=== PATIENT | female | born 1975 | race Caucasian/White ===

== ENCOUNTER 2016-08-31 07:07 | Inpatient (IN) | payer BC ==
[2016-08-31] VITALS (9 sets, daily range): BP systolic 88–119; BP diastolic 42–79
[~2016-08-31] VITALS: Ht 162.6 cm; Wt 68.0 kg
[~2016-08-31 07:07] MED LIST: FERROUS SULFAT325 M2 PO; LISINOPRIL/HCTZ1 TA3 PO; LORTAB 5/500 501 TAB PO
[2016-08-31 07:18] LABS: URINE BLOOD 1+ (NEG)
[2016-08-31] MEDS ORDERED: AVPAK AZITHROM250 MG PO (07:18)
[2016-08-31] MEDS ORDERED: HYDROCHLOROTH12.5 M1 PO (07:19)
[2016-08-31] MEDS ORDERED: PREDNISONE 20MG20 MG PO (07:19)
[2016-08-31 07:24] LABS: URINE BILIRUBIN - DIPSTICK 1+ (NEG)
[2016-08-31 07:31] LABS: URINE SQUAMOUS CELLS 20-50 #/hpf (0-5)
[2016-08-31 07:42] LABS: LYMPH # 0.7 K/mm3 (0.7-4.5); LYMPH % 9.2 % (10-50.0)
[2016-08-31 07:46] LABS: HEMOGLOBIN 13.2 g/dL (12.2-16.2)
--- NOTE | 2016-08-31 08:03 | Emergency Room Report ---
History of Present Illness Time Seen by MD Stearns Presenting Problem in Triage Pt arrived:Walked Presenting Problem:FEVER SINCE FRIDAY-STATES HAS PROGRESSIVELY GOTTEN WORSE BEGAN VOMITING LAST NIGHT AND STATES "I CAN'T STOp". Onset of symptoms date/time:/ or onset unknown for:MEDICAL HX UNKNOWN Treatment Prior to Arrival: TYLENOL AND IBU SEO CONSULTANT Provided by:SELF Sepsis Risk Assessment: Temp: 102.0 B/P: 119/79 MAP: 92 Pulse: 117 Resp: 18 Recent fever? Y Clinical Suspician of Infection? N Mental Status: 1 - Regular (Normal Baseline) Sepsis Risk:Low Sepsis Risk Have you (or family members/close friends) recently traveled outside the [place]? N If Yes, where/when: Have you had exposure to infectious disease within the past month? TB? Other? Specify: Source patient, RN notes reviewed, family, old records Exam Limitations no limitations Comment pt with progressive sob and cough with fever who has finished z galilea - pt with vomiting and dec po intake Cardiac Chest Pain Chest pain indicative of cardiac No Timing/Duration this morning Severity moderate ALLERGIES Coded Allergies: No Known Drug Allergies (08/31/16) Home Medications Active Scripts Acetaminophen W/ Hydrocodone (Lortab 5/500) 1 TAB PO Q4HP #30 TAB Prov: 03/17/13 Reported Medications Azithromycin (Avpak Azithromycin) 250 MG PO DAILY #6 Prednisone (Prednisone 20MG) 20 MG PO BID #12 Hydrochlorothiazide (Hydrochlorothiazide 12.5MG) 12.5 MG PO DAILY Ferrous Sulfate (Ferrous Sulfate 325MG) 325 MG PO DAILY #30 TAB History Medical History General Angina: No [place]: No Hypertension? Yes Hyperlipidemia? No CHF? No COPD? No Asthma? No Hernia? No CVA? No Seizures? No Diabetes? No UTI? Yes Stones? No GB Disease: Yes Hepatitis? No Cataracts? No Glaucoma? No TB? No Cancer? 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 Respiratory cough, denies shortness of breath, denies wheezing Cardiovascular denies chest pain, denies syncope Gastrointestinal denies abdominal pain, denies diarrhea, denies vomiting Genitourinary denies: dysuria, frequency, hesitancy, hematuria. Musculoskeletal denies back pain, denies joint pain, denies joint swelling, denies neck pain Skin denies rash Psychiatric/Neurological denies headache, denies seizure Physical Exam Vital Signs Vital Signs Date Time Temp Pulse Resp B/P Pulse O2 O2 Flow FiO2 Ox Delivery Rate 08/31 0804 101.1 115 18 96 08/31 0730 18 08/31 0714 102.0 117 18 119/79 98 - WBC >12,000 or <4,000 or 10% bands? 2 or more SIRS Criteria Met? B/P:119/79 MAP:92 Creatinine >2.0? UA output<0.5ml/kg/hr for 2 hrs? Platelet count >100,000? Lactate >2.0mmol/1? INR >1.2 or PTT > than 60 sec? Evidence of Organ Dysfunction? Provider documented clinical suspician of infection? N Sepsis Criteria Count: 1 Sepsis Risk: Low Sepsis Risk General Appearance no apparent distress Eye Exam - bilateral eye PERRL, bilateral eye EOMI Ear, Nose, Throat normal ENT inspection Neck supple Respiratory Status No: respiratory distress. Lung Sounds right: decreased breath sounds. 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 No Results/Orders Laboratory Tests 08/31/16 0735: Influenza Type A Ag NOT DETECTED, Influenza Type B Ag NOT DETECTED 08/31/16 0730: Sodium 134 L, Potassium 2.7 *L, Chloride 95 L, Carbon Dioxide 28, BUN 15, Creatinine 0.8, Estimated Creat Clear 98, Estimated GFR (MDRD) 79, Glucose 114 H, Calcium 8.5, Total Bilirubin 0.6, AST 40 H, ALT 56, Alkaline Phosphatase 80, Total Protein 7.1, Albumin 3.2 L, Globulin 3.9 H, Albumin/Globulin Ratio 0.8 L, Amylase 43, Lipase 94, WBC 7.4, RBC 4.39, Hgb 13.2, Hct 38.6, MCV 88.0, RDW 12.4, Plt Count 181, MPV 6.5 L, Gran % 87.9 H, Gran # 6.5, Total Counted 100, Lymphocytes % 9.2 L, Monocytes % 2.5, Eosinophils % 0.2, Basophils % 0.2, Neutrophils 79 H, Band Neutrophils 9 H, Lymphocytes (Manual) 9 L, Lymphocytes # 0.7, Monocytes (Manual) 2, Monocytes # 0.2, Eosinophils # 0.0, Basophils # 0.0 , RBC/WBC/PLT Morphology NORMAL, Atypical Lymphocytes 1, Platelet Estimate NORMAL, PUBS MCHC 34.2, MCH 30.0 08/31/1615: Urine Color YELLOW, Urine Appearance SL CLOUDY, Urine pH 6.5, Ur Specific [place] 1.020, Urine Protein 2+ H, Urine Ketones TRACE H, Urine Blood 1+ H, Urine Nitrate NEGATIVE, Urine Bilirubin 1+ H, Urine Urobilinogen 1.0, Ur Leukocyte Esterase NEGATIVE, Urine RBC OCC, Urine WBC 3-5, Ur Squamous Epith Cells 20-50, Urine Bacteria 2+, Fine Granular Casts OCC, Urine Mucus 1+, Urine Glucose NEGATIVE Current Medication Orders Sig/Kaylen Start time Last Medication Dose Route Stop Time Status Admin Ketorolac 30 MG ONCE ONE 08/31 729 DC 08/31 Tromethamine IV 08/31 Ondansetron HCl 4 MG ONCE ONE 08/31 729 DC 08/31 IV 08/31 730 0729 Sodium Chloride 10 ML PRN PRN 08/31 729 AC IV 09/02 719 Sodium Chloride 1,000 ML .Q1H1M 08/31 729 DC 08/31 IV 08/31 Sodium Chloride 10 ML PRN PRN 08/31 729 AC IV 09/01 720 Ketorolac 0 .STK-MED ONE 09/01 723 DC Tromethamine .ROUTE Ondansetron HCl 0 .STK-MED ONE 09/01 723 DC .ROUTE Sodium Chloride 1,000 ML .STK-MED ONE 09/01 723 DC IV Orders Procedure Date/time Status DIET-NOTHING BY MOUTH 08/31 L Active Decision to admit 08/[address] CHEST W/O CONTRAST 08/[address] CHEST SCAN REQ 08/31 0758 Complete DIFFERENTIAL-WBC 08/31 729 Complete CHEST(2 VIEWS-NOT PORTABLE) 08/31 721 Active INFLUENZA A&B ANTIGENS 08/31 721 Complete IV SALINE LOCK 09/01 719 Active LIPASE 09/01 719 Complete CBC WITH AUTO DIFF 09/01 719 Complete CHEM 12 PROFILE 09/01 719 Complete AMYLASE 09/01 719 Complete CULTURE, URINE 08/31 714 Active URINALYSIS/COMPLETE 08/31 712 Complete URINE 08/31 712 Complete XRAY/CT/US XRAY/CT/US 1 XRAY chest XR interpretation by reviewed by me Xray Results abnormal (cap) XRAY/CT/US [address] interpretation by discussed w/radiologist Time results known: 901 CT Results abnormal (see report) Departure Departure Time of Disposition 0853 Disposition Still a Patient Clinical Impression Primary Impression: CAP (community acquired pneumonia) Secondary Impressions: Hypokalemia Condition STABLE Referrals Tony Martin MD (Family) discussed with [facility] ED Critical Care Critical Care No at 0903
[2016-08-31 08:06] LABS: NEUTROPHILS 79 % (42-76)
[2016-08-31 09:04] LABS: CORONAVIRUS 229E NOT DETECTED (NOT DETECTE); CORONAVIRUS HKU 1 NOT DETECTED (NOT DETECTE); CORONAVIRUS NL63 NOT DETECTED (NOT DETECTE); CORONAVIRUS OC43 NOT DETECTED (NOT DETECTE); RHINOVIRUS/ENTEROVIRUS NOT DETECTED (NOT DETECTE)
--- NOTE | 2016-08-31 09:22 | RADIOLOGY REPORT PS360 ---
CT CHEST W/O CONTRAST Ordering Physician: Christopher Jacobson MD Patient Age: 41 years: Female HISTORY: N/V/D FEVER X 5 DAYS. ABNORMAL CXR. TECHNIQUE: Helical CT scanning performed the chest. No IV contrast utilized FINDINGS Lungs. Bilateral areas of dense lobar pneumonia RIGHT LUNG: RML: Largest dense area consolidation is seen involving RML, mainly involving lateral segment RML. There is minimal satellite areas of focal surrounding this region. This large dense pneumonic lumbar consolidation measuring 7.5 cm wide x 9 cm AP 5.6 cm height. Air bronchograms are seen centrally leading into this dense consolidation but not within it. . RLL. Just adjacent/inferior to this large RML infiltrate there is a smaller dense consolidation/infiltrate involving RML with air bronchograms here.. Again patchy less dense infiltrates seen surrounding both these areas. Also smaller patchy infiltrates elsewhere throughout the right upper lobe. RUL : dense focal area of airspace consolidation medial aspect RUL abutting the mediastinum. This accounts for the round density on chest film just the right of the superior mediastinum. Elongated airless region consolidation measures 6.5 cm AP x 2.5 cm AP x 3.6 cm height. Only Minimal air bronchograms seen leading towards this area but none within it. LEFT LUNG: Dense area pneumonic consolidation involving superior segment left lower lobe seen extends just posterior from left hilum. Hit difficult to visualize on chest film as it is hidden by the left feli can be seen on the lateral CXR. Minimal air bronchograms are seen leading into area and less evident within. It measures 4.5 cmAP X 4.5 cm cm wide x 5.5 cmheight These areas dense consolidation will be important follow-up to exclude underlying lesions or pathology. Note history of smoking would suggest checking sputum bilaterally for Gram stain/culture sensitivity as as well as excluding AFB and fungal. The main to may also consider checking cytology although unlikely. MEDIASTINUM. Curious air/gas noted at anterior mediastinum-. I believe this most likely involves the anterior base of the pulmonary artery. Axial images-31- 37 However there is some streak and motion artifact in this region which limits resolution and detail here.. Air overlying pulmonary artery would be much more concerning but since patient does have an IV recently placed I suspect this is most likely iatrogenic air in this location appearing with the IV insertion process. . I would encourage follow-up CT chest with contrast particularly if significant worsening; & exclude any additional findings.. Feel free free to discuss with in radiology Hilar regions partially obscured by the infiltrate but we do see ossification is at the left feli reflecting old renal this disease. Also moderate sized subcarinal lymph node with calcification reflects such. There are some small reactive nodes mediastinum none measuring over 11 to 12 mm size. No significant pleural effusion. No central airway lesions. Only Minor chronic underlying changes at the lung. Osseous structures intact. T-spine unremarkable. Upper Abdomen. Adrenals appear normal size. Spleen: Partially imaged and appears upper normal in size. Borderline to perhaps mild splenomegaly. ... IMPRESSION 1. Prominent areas of dense pneumonic consolidation bilaterally, most evident right lung .Largest is seen involving the RML lateral segment. Adjacent pneumonic consolidation just inferior to this at RLL. .RUL: elongated area dense consolidation medial RUL adjacent to superior mediastinum. .Scattered smaller patchy areas of infiltrate throughout right lung is well .Left chest: dense pneumonic consolidation is seen just posterior to the left feli involving superior segment LLL. 2. Air anterior mediastinum appears to be most likely within the base of the pulmonary artery. & Likely iatrogenic from IV started ER However if patient's condition worsens a follow-up CT chest with contrast recommended to further evaluate this and other features above 3.. Borderline to mild splenomegaly
--- NOTE | 2016-08-31 09:29 | RADIOLOGY REPORT PS360 ---
CHEST(2 VIEWS-NOT PORTABLE) Ordering Physician: ER Patient Age: 41 years: Female HISTORY: COUGH,CONGESTION TECHNIQUE: PA and lateral chest FINDINGS Bilateral Pneumonia. Most pronounced dense area of consolidation is seen involving the right middle lobe lateral segment this extends towards the lateral right lung base. There is also infiltrate just beneath this at the right lower lobe which partially obscures the right hemidiaphragm. There is a curious rounded area pneumonic consolidation seen just to the right of the mediastinum above the right feli.Subsequent CT shows this is a focal area of consolidation extending anteriorly from the right suprahilar region into the medial right upper lobe. Finally there is a area of pneumonic infiltrate seen extending posterior to the left feli, into the superior segment of the left lower lobe. This can be seen projected over the left feli on the frontal projection. On lateral view this seen is a vague density projected over the mid T spine. Slight elevation right hemidiaphragm. Reflect some volume loss. The right hemidiaphragm partially secured by the right lower lobe pneumonia component. Heart is upper normal in size. Postsurgical changes lower C-spine from previous discectomy and anterior fusion. Upper abdomen Spleen appears slightly generous on plain film measuring 13.5 cm length. -----IMPRESSION----- 1. Prominent Bilateral Lobar Pneumonia., Findings Most evident at the right lung. Dense consolidation most evident involving RML & adjacent RLL at periphery right lung base.. Also areas of focal pneumonia medial RUL, & involvingLLL posterior to the left feli. 2. Borderline/mild splenomegaly
--- NOTE | 2016-08-31 12:43 | HISTORY AND PHYSICAL REPORT ---
Demographics: Admit date: 08/31/16 Chief complaint: Shortness of breath and fever PRIMARY DIAGNOSIS: bilateral lobar pneumonia Allergies: Coded Allergies: No Known Drug Allergies (08/31/16) History of present illness: History of present illness: Patient presented to ER 08/31 with fevers >102, cough, vomiting and malaise. Earlier in the week she had been treated for a bronchitis. ER workup revealed multilobar pneumonia. Patient has been admitted for IV antibiotics. Past medical history: Family HX Family Hx Insignificant No Diabetes Yes CAD No Hypertension Yes Hyperlipidemia No Cancer Yes TB No Immunization HX Ped.Immunizations UTD Yes DT/Tetanus 5-10 Years Ago Flu Refused Pneumonia Refuses General Angina: No [place]: No Hypertension? Yes Hyperlipidemia? No CHF? No COPD? No Asthma? No Hernia? No CVA? No Seizures? No Diabetes? No UTI? Yes Stones? No GB Disease: Yes Hepatitis? No Cataracts? No Glaucoma? No TB? No Cancer? No Past Surgical HX Previous Surgery?Y D & C X 2 TONSILECTOMY Tubal Ligation CYST REMOVAL LEFT WRIST GALLBLADDER REMOVED NECK SURGERY Current home meds: Active Scripts Acetaminophen W/ Hydrocodone (Lortab 5/500) 1 TAB PO Q4HP #30 TAB Prov: 03/17/13 Reported Medications Azithromycin (Avpak Azithromycin) 250 MG PO DAILY #6 Prednisone (Prednisone 20MG) 20 MG PO BID #12 Hydrochlorothiazide (Hydrochlorothiazide 12.5MG) 12.5 MG PO DAILY Ferrous Sulfate (Ferrous Sulfate 325MG) 325 MG PO DAILY #30 TAB Social Hx: Smoking HX Tobacco Yes Type Cigarettes Packs/day 1 1/2 - 2 PACKS Alcohol Alcohol: No Hx of Drug Use Drug Use? No Patien't marital status is Patient's support system is good Review of systems: Constitutional see HPI. Respiratory cough, shortness of breath, SOB at rest. Cardiovascular no symptoms reported Gastrointestinal/Abdominal vomiting Genitourinary no symptoms reported. Musculoskeletal no symptoms reported. Neurological Yes: no symptoms reported. Exam: Lab data for last 24 hours: Laboratory Tests 09/01/16 0603: Sodium 135 L, Potassium 2.8 *L, Chloride 101, Carbon Dioxide 26, BUN 6 L, Creatinine 0.7, Estimated Creat Clear 112, Estimated GFR (MDRD) 92, Glucose 97, Calcium 7.7 L, WBC 4.6 L, RBC 3.64 L, Hgb 11.3 L, Hct 32.7 L, MCV 89.9, RDW 12.4, Plt Count 168, MPV 6.4 L, Gran % 75.0, Gran # 3.5, Lymphocytes % 21.9, Monocytes % 2.9, Eosinophils % 0.0 L, Basophils % 0.1, Lymphocytes # 1.0, Monocytes # 0.1, Eosinophils # 0.0, Basophils # 0.0, PUBS MCHC 34.7, MCH 31.2 Admission vital signs: 1ST Vital Signs Result Date Time Pulse Ox 98 08/31 713 B/P 119/79 08/31 713 Temp 102.0 08/31 713 Pulse 117 08/31 713 Resp 18 08/31 713 O2 Delivery ROOM AIR 08/31 1053 Exam General appearance: normal appearance, alert, awake ENT: normal exam, mucous membranes moist Neck: normal inspection, non-tender, no carotid bruit, no JVD Cardiovascular: normal exam Respiratory: basilar rales, diminished breath sounds, rhonchi Plan: Problem List 1. CAP (community acquired pneumonia) 2. Hypokalemia Plan: 1. Levaquin, cefepime, vancomycin for pneumonia 2. IV fluids
--- NOTE | 2016-08-31 13:54 | CONSULT NOTE ---
Pharmacokinetic Consult Date of consult: 08/31/16 Time of consult: 1352 Referring provider: SAKINA Reason for consult: VANCOMYCIN DOSING Allergies: Coded Allergies: No Known Drug Allergies (08/31/16) Home Medications: Active Scripts Acetaminophen W/ Hydrocodone (Lortab 5/500) 1 TAB PO Q4HP #30 TAB Prov: 03/17/13 Reported Medications Azithromycin (Avpak Azithromycin) 250 MG PO DAILY #6 Prednisone (Prednisone 20MG) 20 MG PO BID #12 Hydrochlorothiazide (Hydrochlorothiazide 12.5MG) 12.5 MG PO DAILY Ferrous Sulfate (Ferrous Sulfate 325MG) 325 MG PO DAILY #30 TAB Height (feet): 5 Height (inches): 4.00 Medical History: Angina: No [place]: No Hypertension? Yes Hyperlipidemia? No CHF? No COPD? No Asthma? No Hernia? No CVA? No Seizures? No Diabetes? No UTI? Yes Stones? No GB Disease: Yes Hepatitis? No Cataracts? No Glaucoma? No TB? No Cancer? No Labs: Laboratory Tests 08/31/16 0856: Chlamy pneum (TEM-PCR) NOT DETECTED, Adenovirus (PCR) NOT DETECTED, B. pertussis DNA (PCR) NOT DETECTED, Coronavirus OC43 (PCR) NOT DETECTED, Coronavirus HKU1 ( PCR) NOT DETECTED, Coronavirus 229E (PCR) NOT DETECTED, Coronavirus NL63 (PCR) NOT DETECTED, Human Metapneumovirus NOT DETECTED, Influenza A (H1) PCR NOT DETECTED, Influ A (H1N1/09) PCR NOT DETECTED, Influenza A (H3) PCR NOT DETECTED, Influenza Type A (PCR) NOT DETECTED, Influenza Type B (PCR) NOT DETECTED, M. pneumoniae (PCR) NOT DETECTED, Parainfluenza 1 (PCR) NOT DETECTED, Parainfluenza 2 (PCR) NOT DETECTED, Parainfluenza 3 (PCR) NOT DETECTED, Parainfluenza 4 (PCR) NOT DETECTED, RSV (PCR) NOT DETECTED, Entero/Rhino (PCR) NOT DETECTED 08/31/16 0735: Influenza Type A Ag NOT DETECTED, Influenza Type B Ag NOT DETECTED 08/31/16 0730: Sodium 134 L, Potassium 2.7 *L, Chloride 95 L, Carbon Dioxide 28, BUN 15, Creatinine 0.8, Estimated Creat Clear 98, Estimated GFR (MDRD) 79, Glucose 114 H, Calcium 8.5, Total Bilirubin 0.6, AST 40 H, ALT 56, Alkaline Phosphatase 80, Total Protein 7.1, Albumin 3.2 L, Globulin 3.9 H, Albumin/Globulin Ratio 0.8 L, Amylase 43, Lipase 94, WBC 7.4, RBC 4.39, Hgb 13.2, Hct 38.6, MCV 88.0, RDW 12.4, Plt Count 181, MPV 6.5 L, Gran % 87.9 H, Gran # 6.5, Total Counted 100, Lymphocytes % 9.2 L, Monocytes % 2.5, Eosinophils % 0.2, Basophils % 0.2, Neutrophils 79 H, Band Neutrophils 9 H, Lymphocytes (Manual) 9 L, Lymphocytes # 0.7, Monocytes (Manual) 2, Monocytes # 0.2, Eosinophils # 0.0, Basophils # 0.0 , RBC/WBC/PLT Morphology NORMAL, Atypical Lymphocytes 1, Platelet Estimate NORMAL, PUBS MCHC 34.2, MCH 30.0 08/31/16 0715: Urine Color YELLOW, Urine Appearance SL CLOUDY, Urine pH 6.5, Ur Specific [place] 1.020, Urine Protein 2+ H, Urine Ketones TRACE H, Urine Blood 1+ H, Urine Nitrate NEGATIVE, Urine Bilirubin 1+ H, Urine Urobilinogen 1.0, Ur Leukocyte Esterase NEGATIVE, Urine RBC OCC, Urine WBC 3-5, Ur Squamous Epith Cells 20-50, Urine Bacteria 2+, Fine Granular Casts OCC, Urine Mucus 1+, Urine Glucose NEGATIVE Microbiology 08/31 714 URINE CC: Urine Culture - RECD Plan: BASED ON PT FACTORS RECOMMEND VANCO DOSING OF 1250 MG IV Q 12 HOURS. WILL CHECK VANCO TROUGH PRIOR TO THIRD DOSE. PHARMACY WILL CONTINUE TO MONITOR DAILY AND ADJUST NEEDED. at 1353
[2016-09-01] VITALS (8 sets, daily range): BP systolic 106–131; BP diastolic 56–79
[2016-09-01 07:06] LABS: LYMPH % 21.9 % (10-50.0)
[2016-09-01 07:17] LABS: HEMOGLOBIN 11.3 g/dL (12.2-16.2)
--- NOTE | 2016-09-01 08:05 | ACUTE CARE PROGRESS NOTE (QUA) ---
Progress Notes Admission Date: 08/31/16 Antimicrobial stewardship: If this patient was administered antibiotics in the last 48 hours please complete the antimicrobial stewardship section of this template. Subjective Date 09/01/16 Time 0804 Note Patient feels a little bit better. Her appetite is beginning to return. She continues to have cough and this interfered with sleep. Cough primarily remains nonproductive. She had fevers greater than 102 overnight She looks well. Lung exam has rhonchi in the RIGHT and LEFT base as well as RIGHT midlung. Heart has regular rate and rhythm. Continue current antibiotic coverage. Monitor fevers Objective Findings Last VS-Temp:100.2 B/P:109/65 Pulse:94 Resp:18 SaO2:95 ROOM AIR Last weight lbs:150 oz:0 K.040 Method:Floor Scales Laboratory Tests 09/01/16 0603: Sodium 135 L, Potassium 2.8 *L, Chloride 101, Carbon Dioxide 26, BUN 6 L, Creatinine 0.7, Estimated Creat Clear 112, Estimated GFR (MDRD) 92, Glucose 97, Calcium 7.7 L, WBC 4.6 L, RBC 3.64 L, Hgb 11.3 L, Hct 32.7 L, MCV 89.9, RDW 12.4, Plt Count 168, MPV 6.4 L, Gran % 75.0, Gran # 3.5, Lymphocytes % 21.9, Monocytes % 2.9, Eosinophils % 0.0 L, Basophils % 0.1, Lymphocytes # 1.0, Monocytes # 0.1, Eosinophils # 0.0, Basophils # 0.0, PUBS MCHC 34.7, MCH 31.2 08/31/16 0856: Chlamy pneum (TEM-PCR) NOT DETECTED, Adenovirus (PCR) NOT DETECTED, B. pertussis DNA (PCR) NOT DETECTED, Coronavirus OC43 (PCR) NOT DETECTED, Coronavirus HKU1 ( PCR) NOT DETECTED, Coronavirus 229E (PCR) NOT DETECTED, Coronavirus NL63 (PCR) NOT DETECTED, Human Metapneumovirus NOT DETECTED, Influenza A (H1) PCR NOT DETECTED, Influ A (H1N1/09) PCR NOT DETECTED, Influenza A (H3) PCR NOT DETECTED, Influenza Type A (PCR) NOT DETECTED, Influenza Type B (PCR) NOT DETECTED, M. pneumoniae (PCR) NOT DETECTED, Parainfluenza 1 (PCR) NOT DETECTED, Parainfluenza 2 (PCR) NOT DETECTED, Parainfluenza 3 (PCR) NOT DETECTED, Parainfluenza 4 (PCR) NOT DETECTED, RSV (PCR) NOT DETECTED, Entero/Rhino (PCR) NOT DETECTED Assessment/Plan Problem List 1. CAP (community acquired pneumonia) 2. Hypokalemia This inpt stay is expected to cross 2 MNs from start of care Yes Antibiotic Stewardship (2) Current Culture Results Microbiology 08/31 0715 URINE CC: Urine Culture - RES Infxn that will respond? Yes Right drug,dose,and route? Yes More targeted antbx? Yes How long atbx needed? 7 at 0805
--- NOTE | 2016-09-01 10:50 | PHARMACY CLINIC NOTE ---
Patient Demographics Patient Demographics Admission date: 08/31/16 Date: 09/01/16 Time: 1050 Allergies Coded Allergies: No Known Drug Allergies (08/31/16) HEIGHT- FT: 5 IN: 4.00 K.040 VTE General Information Labs: Laboratory Tests 09/01 0603 Hematology Hgb (12.2 - 16.2 g/dL) 11.3 L Hct (37.0 - 47.0 %) 32.7 L Plt Count (142 - 424 K/mm3) 168 Disclaimer The following section includes nursing documentation that has been pulled in for pharmacy review. Patient's VTE score: 2 Patient's VTE Risk: VERY LOW RISK Clinical trial participant? No VTE prophylaxis F [id number] VTE prophylaxis ordered? Yes Type of prophylaxis/treatment: DARIEN at 1050
--- NOTE | 2016-09-01 13:53 | CONSULT NOTE ---
Pharmacokinetic Consult Date of consult: 09/01/16 Time of consult: 1351 Referring provider: DR. PRESLEY Reason for consult: VANCOMYCIN LEVEL AND DOSE CHANGE Allergies: Coded Allergies: No Known Drug Allergies (08/31/16) Home Medications: Reported Medications Ferrous Sulfate (Ferrous Sulfate 325MG) 325 MG PO DAILY #30 TAB Hydrochlorothiazide (Hydrochlorothiazide 12.5MG) 12.5 MG PO DAILY Height (feet): 5 Height (inches): 4.00 Medical History: Angina: No [place]: No Hypertension? Yes Hyperlipidemia? No CHF? No COPD? No Asthma? No Hernia? No CVA? No Seizures? No Diabetes? No UTI? Yes Stones? No GB Disease: Yes Hepatitis? No Cataracts? No Glaucoma? No TB? No Cancer? No Labs: Laboratory Tests 09/01/16 1326: Vancomycin Trough 3.4 L 09/01/16 0603: Sodium 135 L, Potassium 2.8 *L, Chloride 101, Carbon Dioxide 26, BUN 6 L, Creatinine 0.7, Estimated Creat Clear 112, Estimated GFR (MDRD) 92, Glucose 97, Calcium 7.7 L, WBC 4.6 L, RBC 3.64 L, Hgb 11.3 L, Hct 32.7 L, MCV 89.9, RDW 12.4, Plt Count 168, MPV 6.4 L, Gran % 75.0, Gran # 3.5, Lymphocytes % 21.9, Monocytes % 2.9, Eosinophils % 0.0 L, Basophils % 0.1, Lymphocytes # 1.0, Monocytes # 0.1, Eosinophils # 0.0, Basophils # 0.0, PUBS MCHC 34.7, MCH 31.2 Problem List: 1. CAP (community acquired pneumonia) Plan: BASED ON PATIENT'S VANCOMYCIN LEVEL OF 3.4 MCG/ML PRIOR TO 3RD DOSE, RECOMMEND CHANGING DOSING INTERVAL TO Q8 AT THIS TIME. PHARMACY WILL FOLLOW DAILY AND ADJUST APPROPRIATE. JOSE LINARES PHARMD at 9014
[2016-09-02] VITALS (7 sets, daily range): BP systolic 104–143; BP diastolic 59–79
--- NOTE | 2016-09-02 06:38 | ACUTE CARE PROGRESS NOTE (QUA) ---
Progress Notes Subjective Date 09/02/16 Time 0636 Note Patient feels slightly better than yesterday. Fever curve is trending down. Cough remains nonproductive. She was able to get some rest. Patient does not appear to be in any distress. Lung exam has diffuse rhonchi best heard in upper and lower lobes posteriorly. Heart has regular rate and rhythm. Continue her IV antibiotics. She has been unable to produce sputum. Stop IV fluids. We'll reassess this afternoon. Objective Findings Last VS-Temp:99.9 B/P:121/77 Pulse:86 Resp:18 SaO2:90 ROOM AIR Last weight lbs:150 oz:0 K.040 Method:Floor Scales Laboratory Tests 09/01/16 1326: Vancomycin Trough 3.4 L Assessment/Plan Problem List 1. CAP (community acquired pneumonia) 2. Hypokalemia Patient condition Improving Plan: continue current care This inpt stay is expected to cross 2 MNs from start of care Yes Antibiotic Stewardship (2) Infxn that will respond? Yes Right drug,dose,and route? Yes More targeted antbx? Yes at 0638
[2016-09-03 00:11] VITALS: BP 143/79
[2016-09-03 04:12] VITALS: BP 120/74
--- NOTE | 2016-09-03 07:06 | ACUTE CARE PROGRESS NOTE (QUA) ---
Progress Notes Subjective Date 09/03/16 Time 0705 Note Patient complains of a headache this morning. This made it difficult to sleep. She denies any shortness of breath. Review of vital signs so she did not have any fevers. Vital signs reviewed. Lungs still have rales in the bases although air entry is much improved. Heart has regular rate and rhythm. Patient be discharged home today to continue additional 4 days of Levaquin. Follow-up in the office this Friday Objective Findings Last VS-Temp:98.4 B/P:120/74 Pulse:78 Resp:18 SaO2:93 ROOM AIR Last weight lbs:150 oz:0 K.040 Method:Floor Scales Microbiology 09/03 29 SPUTUM: Sputum Culture - RECD 09/03 29 SPUTUM: Gram Stain - RECD Assessment/Plan Problem List 1. CAP (community acquired pneumonia) 2. Hypokalemia Patient condition Improving Plan: initiate discharge plan This inpt stay is expected to cross 2 MNs from start of care Yes Antibiotic Stewardship (2) Infxn that will respond? Yes Right drug,dose,and route? Yes More targeted antbx? Yes at 0706
--- NOTE | 2016-09-03 07:08 | Discharge Summary ---
Demographics Admit date: 08/31/16 Discharge date: 09/03/16 Discharge diagnoses Problem List 1. CAP (community acquired pneumonia) 2. Hypokalemia History of present illness History of present illness Patient presented to ER 08/31 with fevers >102, cough, vomiting and malaise. Earlier in the week she had been treated for a bronchitis. ER workup revealed multilobar pneumonia. Patient has been admitted for IV antibiotics. Patient was admitted and placed on Levaquin and cefepime was vancomycin due to the fact that she is [place] been on azithromycin as an outpatient. Patient defervesced within 36 hours. During hospitalization and she never required supplemental oxygen support. Lowest documented O2 sat was 93 percent. Patient improved physically each day. Lung exam improved a little each day with improving air entry on a daily basis. On the the patient had been fever free for over 24 hours. She was doing well at room air. Lung exam revealed improved air entry. Patient was discharged home. Medications Medications: Discharge meds are as noted. Follow up Follow up in office in: 3 DAYS with: Tony Martin MD Comment: Follow-up September 05 at 0708
[2016-09-03] MEDS ORDERED: LEVOFLOXACIN 7750 M1 PO (07:10)
[2016-09-03] MEDS ORDERED: K-DUR 20MEQ TA20 MEQ PO (07:10)
[2016-09-03 07:48] VITALS: BP 120/74
[2016-09-03 08:00] VITALS: BP 118/78
[2016-09-03 08:01] VITALS: BP 120/74
--- NOTE | 2016-09-03 09:49 | CONSULT NOTE ---
Pharmacokinetic Consult Date of consult: 09/03/16 Time of consult: 0500 Referring provider: DR PRESLEY Reason for consult: VANCOMYCIN LEVEL Allergies: Coded Allergies: No Known Drug Allergies (08/31/16) Home Medications: Reported Medications Ferrous Sulfate (Ferrous Sulfate 325MG) 325 MG PO DAILY #30 TAB Hydrochlorothiazide (Hydrochlorothiazide 12.5MG) 12.5 MG PO DAILY Height (feet): 5 Height (inches): 4.00 Medical History: Angina: No GA: No Hypertension? Yes Hyperlipidemia? No CHF? No COPD? No Asthma? No Hernia? No CVA? No Seizures? No Diabetes? No UTI? Yes Stones? No GB Disease: Yes Hepatitis? No Cataracts? No Glaucoma? No TB? No Cancer? No Labs: Laboratory Tests 09/03/16 0445: Sodium 142, Potassium 3.5, Chloride 107, Carbon Dioxide 27, BUN 4 L, Creatinine 0.5 L, Estimated Creat Clear 157, Estimated GFR (MDRD) 135, Glucose 88, Calcium 8.0 L, Vancomycin Trough 3.8 L Microbiology 09/03 29 SPUTUM: Sputum Culture - RES 09/03 29 SPUTUM: Gram Stain - RES Problem List: 1. CAP (community acquired pneumonia) Plan: VANCOMYCIN TROUGH LEVEL THIS MORNING WAS 3.8, HOWEVER, PATIENT REFUSED IV STICKS AND ANTIBIOTICS LAST NIGHT AT 2100 DOSE. PATIENT HAS BEEN DISCHARGED THIS MORNING. at 0948
== END 2016-09-03 08:45 | disposition home or self-care (01) | DRG 195 ==
LOC: ER 07:07 → 2ND 08:56 → ICU 09:00 → 2ND 09:00 → ICU 10:09 → 2ND 10:20 → ICU 10:20 → 2ND 15:23
PROVIDERS: Emergency Medicine; Family Medicine
DX: J18.9 Pneumonia, unspecified organism (principal); I10 Essential (primary) hypertension; Z72.0 Tobacco use; E87.6 Hypokalemia
CPT/HCPCS: J0692; J2405; J3370